=== PATIENT | female | born 1935 | race Caucasian/White ===

== ENCOUNTER 2020-11-29 09:02 | Emergency (ER) | payer MEDICARE, OTHER ==
[2020-11-29 10:56] LABS: HEMOGLOBIN 12.4 gm/dl (12.3-15.3); RED BLOOD COUNT 4.22 M/UL (4.00-5.10); WHITE BLOOD COUNT 9.3 K/UL (4.5-11.0)
[2020-11-29 11:19] LABS: BUN/CREATININE RATIO 41 (0-10)
[2020-11-29] MEDS ORDERED: ELIQUIS 5 MG TAB5 MG PO (14:10)
== END 2020-11-29 16:57 | disposition home or self-care (01) ==
LOC: ER1 09:02
PROVIDERS: Physician Assistant
DX: I82.812 Embolism and thrombosis of superficial veins of left lower extremity (principal); I26.99 Other pulmonary embolism without acute cor pulmonale; K44.9 Diaphragmatic hernia without obstruction or gangrene; I10 Essential (primary) hypertension; G30.9 Alzheimer's disease, unspecified; F02.80 Dementia in other diseases classified elsewhere, unspecified severity, without behavioral disturbance, psychotic disturbance, mood disturbance, and anxiety; Z88.8 Allergy status to other drugs, medicaments and biological substances; Z86.718 Personal history of other venous thrombosis and embolism; Z74.01 Bed confinement status
CPT/HCPCS: 80053; 85025; 85610; 93005; 93971; 99284; Q9967

== ENCOUNTER 2021-02-23 12:02 | Emergency (ER) | payer MEDICARE, OTHER ==
[~2021-02-23 12:02] MED LIST: ELIQUIS 5 MG TAB5 MG PO
[2021-02-23 12:31] LABS: HEMOGLOBIN 14.3 gm/dl (12.3-15.3); RED BLOOD COUNT 4.92 M/UL (4.00-5.10); WHITE BLOOD COUNT 5.8 K/UL (4.5-11.0)
[2021-02-23 13:04] LABS: BUN/CREATININE RATIO 34 (0-10)
== END 2021-02-23 17:30 ==
LOC: ER1 12:02
PROVIDERS: Emergency Medicine
DX: E86.0 Dehydration (principal); I11.9 Hypertensive heart disease without heart failure
CPT/HCPCS: 70450; 71045; 80053; 81001; 82550; 82553; 83605; 84484; 85025; 93005; 99285